=== PATIENT | female | born 1965 | race Caucasian/White ===

== ENCOUNTER 2020-07-16 12:12 | Emergency (ER) | payer OTHER ==
[2020-07-16] MEDS ORDERED: Lidocaine 1% 10 ML MDV INJECT ONE (12:44)
[2020-07-16] MEDS ORDERED: LORazepam 1 MG Tab PO ONE (13:09)
[2020-07-16] MEDS ORDERED: Bupivacaine 0.25% 10 ML SDV INJECT ONE (13:17)
[2020-07-16] MEDS ORDERED: cefTRIAXone 1 GM, Lidocaine 1% 2.1 ML IM ONE ×2 (13:18)
[2020-07-16] MEDS ORDERED: Diphtheria,Pertussis(Acell),Tetanus Vaccine 0.5 ML Syringe IM ONE (13:23)
--- NOTE | 2020-07-16 13:31 | EDM.PDOC ---
ED HPI GENERAL MEDICAL PROBLEM - General Chief Complaint: Laceration Stated Complaint: LEFT THUMB LAC Time Seen by Provider: 07/16/20 12:24 Source of Information: Reports: Patient History Limitations: Reports: No Limitations - History of Present Illness INITIAL COMMENTS - FREE TEXT/NARRATIVE: The patient presents for left thumb injury. The patient works at [employer] and she but her left thumb pinched in a large door. She has no other injuries. Her left thumb has a laceration and the thumb is nearly gone. She is right handed. She is not sure if her tetanus is up to date. Onset: Sudden Duration: Minutes: Location: Reports: Upper Extremity, Left (thumb) Quality: Reports: Sharp Severity: Moderate Improves with: Reports: None Worsens with: Reports: None Associated Symptoms: Reports: No Other Symptoms Left Finger-Thumb Pain Score (Numeric/FACES): 2 - Related Data Allergies Allergy/AdvReac Type Severity Reaction Status Date / Time Penicillins Allergy Rash Verified 07/16/20 12:22 Home Meds: Home Meds . [No Known Home Meds] 07/16/20 [History] Past Medical History HEENT History: Reports: Impaired Vision Other HEENT History: wears eyeglasses. Cardiovascular History: Reports: Other (See Below) Other Cardiovascular History: was Dx'd with tachycardia. Genitourinary History: Reports: UTI, Recurrent PEDIATRIC DENTIST History: Reports: Neurological History: Reports: Headaches, Chronic Psychiatric History: Reports: Anxiety - Infectious Disease History Infectious Disease History: Reports: Chicken Pox, Measles, Mumps Social & Family History - Tobacco Use Tobacco Use Status *Q: Current Every Day Tobacco User Years of Tobacco use: 30 Packs/Tins Daily: 0.3 Second Hand Smoke Exposure: No - Caffeine Use Caffeine Use: Reports: Coffee - Recreational Drug Use Recreational Drug Use: No ED ROS GENERAL - Review of Systems Review Of Systems: See Below Constitutional: Reports: No Symptoms HEENT: Reports: No Symptoms Respiratory: Reports: No Symptoms Cardiovascular: Reports: No Symptoms Endocrine: Reports: No Symptoms GI/Abdominal: Reports: No Symptoms : Reports: No Symptoms Musculoskeletal: Reports: Other (left thumb injury) ED EXAM, SKIN/RASH Exam: See Below Exam Limited By: No Limitations General Appearance: Alert, No Apparent Distress Ears: Normal External Exam Nose: Normal Inspection Head: Atraumatic, Normocephalic Neck: Normal Inspection Respiratory/Chest: No Respiratory Distress Extremities: Other (Left thumb has a laceration to the base of the thumb. There is some skin attached to the volar side of the thumb. ) Course - Vital Signs Last Recorded V/S: Last Vital Signs Temp 97.0 F 07/16/20 12:23 Pulse 113 H 07/16/20 12:23 Resp 18 07/16/20 12:23 BP 128/79 07/16/20 12:23 Pulse Ox 97 07/16/20 12:23 - Orders/Labs/Meds Orders: Active Orders 24 hr Category Date Time Status Vaccines to be Administered [RC] PER UNIT ROUTINE Care 07/16/20 13:23 Active Meds: Medications Discontinued Medications Generic Name Dose Route Start Last Admin Trade Name Fariha PRN Reason Stop Dose Admin Bupivacaine HCl 10 ml 07/16/20 13:17 Sensorcaine-Mpf 0.25% INJECT 07/16/20 13:18 ONETIME ONE Ceftriaxone Sodium 1 gm/ 0 gm 07/16/20 13:18 Lidocaine HCl 2.1 ml IM 07/16/20 13:19 ONETIME ONE Diphtheria/Tetanus/Acell Pertussis 0.5 ml 07/16/20 13:23 Boostrix IM 07/16/20 13:24 .ONCE ONE Lidocaine HCl 10 ml 07/16/20 12:44 Xylocaine 1% INJECT 07/16/20 12:45 ONETIME ONE Lorazepam 1 mg 07/16/20 13:09 Ativan PO 07/16/20 13:10 ONETIME ONE - Re-Assessments/Exams Free Text/Narrative Re-Assessment/Exam: 07/16/20 13:30 I ordered rocephin 1 gram IM and tetanus. I did an x-ray and the tip is fractured off of the thumb. I called [facility] and talked with Dr Montgomery and he accepted the patient. 07/16/20 13:45 The patient did not want the digital block. She said she hardly has any pain. I cleaned and dressed the wound and put a splint on. I will discharge her and she will go by private vehicle. Departure - Departure Time of Disposition: 13:50 Disposition: DC/Tfer to Acute Hospital 02 Condition: Good Clinical Impression: Fracture of thumb, left, open Qualifiers: Encounter type: initial encounter Phalanx: distal Fracture alignment: displaced Qualified Code(s): S62.522B - Displaced fracture of distal phalanx of left thumb, initial encounter for open fracture Crushing injury of left thumb Qualifiers: Encounter type: initial encounter Qualified Code(s): S67.02XA - Crushing injury of left thumb, initial encounter - Discharge Information Referrals: PCP,None [Primary Care Provider] - Forms: ED Department Discharge Sepsis Event Note (ED) - Evaluation Sepsis Screening Result: No Definite Risk - Focused Exam Vital Signs: Vital Signs Temp Pulse Resp BP Pulse Ox 07/16/20 12:23 97.0 F 113 H 18 128/79 97 - My Orders Last 24 Hours: My Active Orders 07/16/20 13:23 Vaccines to be Administered [RC] PER UNIT ROUTINE - Assessment/Plan Last 24 Hours: My Active Orders 07/16/20 13:23 Vaccines to be Administered [RC] PER UNIT ROUTINE
--- NOTE | 2020-07-16 13:41 | CR ---
Left thumb: 2 views of the left thumb were obtained. Defect is noted within the distal phalanx of the thumb with fracture. Soft tissue injury is noted. No proximal abnormality is appreciated. Impression: 1. Fracture with bony defect within the distal phalanx of left thumb. 2. Soft tissue injury. Diagnostic code #3
[2020-07-16] MEDS ORDERED: LORazepam 1 MG Tab ONE (13:59)
== END 2020-07-16 14:05 ==
LOC: JD.ED 12:12
DX: S62.522B Displaced fracture of distal phalanx of left thumb, initial encounter for open fracture (principal); Z23 Encounter for immunization; Z88.0 Allergy status to penicillin; Z72.0 Tobacco use; W23.0XXA Caught, crushed, jammed, or pinched between moving objects, initial encounter; Y99.0 Civilian activity done for income or pay
CPT/HCPCS: 73140; 90471; 90715; 96372; 99284; J0696; A9270-GY